=== PATIENT | female | born 1960 | race Caucasian/White ===

== ENCOUNTER 2020-07-01 13:47 | Outpatient (CLI) | payer OTHER, SELFPAY ==
--- NOTE | ~2020-07-01 | XR_ITS ---
EXAMINATION: XR chest 2V DATE: 07/01/2020 14:03 INDICATION: Shortness of breath and cough. TECHNIQUE: Frontal and lateral views of the chest were obtained. COMPARISON: Chest 2 views 10/28/2014 FINDINGS: There is mild scarring at the lung apices. No pleural effusion or pneumothorax. The heart s ize is normal. IMPRESSION: 1. Mild scarring at the lung apices. Reviewed, dictated and finalized at location A.
== END 2020-07-01 13:48 | disposition home or self-care (01) ==
PROVIDERS: PCP Physician Assistant; Visit Provider Allergy & Immunology
DX: R06.02 Shortness of breath (principal); R05 Cough
CPT/HCPCS: 71046

== ENCOUNTER 2020-10-02 12:45 | Emergency (ER) | payer OTHER, SELFPAY ==
--- NOTE | ~2020-10-02 | XR_ITS ---
EXAMINATION: XR elbow LT min 3V DATE: 10/02/2020 13:12 INDICATION: Swelling with drainage of the left elbow post fall one month prior TECHNIQUE: Anteroposterior, two oblique and lateral views of the left elbow were obtained. COMPARISON: None. FINDINGS: Alignment is normal. No fracture or joint effusion. Joint spaces are normal. There is prominent soft tissue swelling posterior to the olecranon with small amount of superficial gastric of the soft tissu es suggesting a skin laceration or open wound. No underlying cortical erosion or periosteal reaction to suggest osteomyelitis. IMPRESSION: 1. Soft tissue swelling with likely laceration or open skin wound posterior to the olecranon. 2. No left elbow joint effusion or osseous abnormality. Reviewed, dictated and finalized at location A.
[2020-10-02 12:55] VITALS: BP 133/80; PULSE 101; RESP 18; TEMP 37.1; O2SAT 99
--- NOTE | 2020-10-02 12:59 | ED.UPPEXIN ---
HPI - Extremity Injury (Upper) General Chief Complaint: Extremity Injury, Upper Stated Complaint: Fell in Shower injury to left Elbow Time Seen by Provider: 10/02/20 12:59 Source: patient and RN notes reviewed History of Present Illness HPI narrative: Patient is a 60-year-old female who presents the urgent care with complaints of left elbow swelling with an open wound. Patient states that she fell in the shower on September 06 and she was Steri-Strip been the small laceration over the left elbow since then. Patient states that for the last couple weeks she has noticed yellow drainage from the area and every time she bends her arm it would shoot across the room . Patient denies of any fevers and states that she has been keeping it clean with the use of Neosporin and a Band-Aid. Patient denies of any other injuries from the fall. No other acute complaints. No acute distress noted. Patient aware of the plan of care. Some parts of this dictation were generated by voice recognition software and may contain typographical and/or grammatical inaccuracies. Related Data Home Medications Medication Instructions Recorded Confirmed esomeprazole magnesium 20 mg 20 mg PO DAILY 03/18/20 10/02/20 capsule,delayed release Allergies Allergy/AdvReac Type Severity Reaction Status Date / Time Penicillins Allergy Unknown Skin Verified 10/02/20 12:58 irritation Review of Systems Review of Systems: Narrative: CONSTITUTIONAL: Denies fever, chills, or sweats. EYES: Denies visual changes, redness, or discharge. ENT: Denies rhinorrhea, congestion, sore throat, or otalgia. CARDIOVASCULAR: Denies chest pain, palpitations, or edema. RESPIRATORY: Denies cough or dyspnea. GASTROINTESTINAL: Denies abdominal pain, nausea, vomiting, or diarrhea. GENITOURINARY: Denies dysuria or hematuria. SKIN: Reports of an open wound to the left elbow MUSCULOSKELETAL: Reports of swelling to the left elbow NEUROLOGIC: Denies headache, numbness, or weakness. All other systems reviewed are negative, except as documented in HPI. [facility] Past Medical History Medical History VARSHA (generalized anxiety disorder) HTN (hypertension) Hypothyroidism determined by thyroid function test Surgical History Surgical History H/O: hysterectomy Hx of appendectomy Family History Family History Father Family history of heart disease in male family member before age 55 Family history of cardiovascular disease Acute myocardial infarction Family history of coronary artery disease Mother Family history of Parkinson's disease Family history of Alzheimer's disease Father Heart disease Mother Parkinson disease Other Family history of arthritis Social History Social History Smoking status: Former smoker (Quit 10 years ago) Second hand tobacco smoke exposure: No Alcohol intake: current Substance use: current Substance use type: marijuana Comments At the time of my signature, I reviewed and agree with the nursing past medical, surgical, social, and family history. There is no relevant family history pertinent to the patient complaint. Exam Narrative: Exam Narrative: GENERAL: This is a well-nourished, well-developed patient, in no apparent distress. HEAD: normocephalic, atraumatic. EYES: PERRL. Sclera clear/white. Vision is grossly intact. EARS: External ears normal NOSE: External nose normal with no obvious nasal discharge, nares without redness, no rhinorrhea. THROAT: Mucous membranes moist NECK: Neck supple CARDIOVASCULAR: Regular rate and rhythm without murmurs, gallops, or rubs. RESPIRATORY: Clear to auscultation. Breath sounds equal bilaterally. No wheezes, rales, or rhonchi. SKIN: 1 x 0.5 cm open wound with serosanguineous yell
== END 2020-10-02 13:46 | disposition home or self-care (01) ==
PROVIDERS: Emergency Provider Nurse Practitioner Family
DX: M70.22 Olecranon bursitis, left elbow (principal); Z87.891 Personal history of nicotine dependence; I10 Essential (primary) hypertension; E03.9 Hypothyroidism, unspecified
CPT/HCPCS: 73080; 99213; G0463

== ENCOUNTER 2020-12-24 10:50 | Emergency (ER) | payer OTHER, SELFPAY ==
--- NOTE | ~2020-12-24 | XR_ITS ---
EXAMINATION: XR foot LT min 3V DATE: 12/24/2020 11:20 INDICATION: Pain and swelling in the medial aspect of the left foot TECHNIQUE: Dorsoplantar, lateral, and 2 oblique views of the left foot were obtained. COMPARISON: None. FINDINGS: There is mild osteoarthritis of multiple interphalangeal joints as well as at the first met atarsophalangeal joint. There is mild cortical irregularity at the medial aspect of the proximal base of the first metatarsal. Soft tissue swelling is seen in the medial aspect of the foot adjacent to t he base of the first metatarsal. IMPRESSION: 1. Subtle cortical irregularity and adjacent soft tissue swelling of the base of the first metatarsal which could reflect nondisplaced fracture or less likely gout. Reviewed, dictated and finalized at location B. IMPRESSION: 1. Subtle cortical irregularity and adjacent soft tissue swelling of the base o f the first metatarsal which could reflect nondisplaced fracture or less likely gout.
[2020-12-24 10:57] VITALS: BP 157/84; PULSE 95; RESP 16; TEMP 36.4; O2SAT 100
--- NOTE | 2020-12-24 11:27 | ED.LOWEXIN ---
HPI - Extremity Injury (Lower) General Chief Complaint: Extremity Injury, Lower <Aimee Salazar - Last Filed: 12/25/20 07:55> Stated Complaint: Swollen and pain in left Foot <Aimee Salazar - Last Filed: 12/25/20 07:55> Time Seen by Provider: 12/24/20 11:27 <Aimee Salazar - Last Filed: 12/25/20 07:55> Source: patient and RN notes reviewed <Aimee Salazar - Last Filed: 12/25/20 07:55> patient <Nayeli Simpson CNP - Last Filed: 12/24/20 17:59> Mode of arrival: ambulatory <Aimee Salazar - Last Filed: 12/25/20 07:55> ambulatory <Nayeli Simpson CNP - Last Filed: 12/24/20 17:59> Limitations: no limitations <Aimee Salazar - Last Filed: 12/25/20 07:55> no limitations <Nayeli Simpson CNP - Last Filed: 12/24/20 17:59> History of Present Illness HPI Narrative: 60-year-old female presents to the [facility] with complaints of left foot pain <Aimee Salazar - Last Filed: 12/25/20 07:55> Rosa Ndiaye is a 60 yo female with a PMH of high blood pressure and hypothyroid comes to [facility] after a fall couple days ago and pain in her left foot at the base of her great toe. She been taking gout medication because she is got swelling around the toe and has had gout in the past but has it has not improved with the medication (she does not know the name of the medication she has been taking) <Nayeli Simpson CNP - Last Filed: 12/24/20 17:59> Related Data Home Medications: Home Medications Medication Instructions Recorded Confirmed cetirizine 5 mg-pseudoephedrine ER 1 tablet PO Q12H 10/20/20 12/24/20 120 mg tablet,extended release,12hr atorvastatin 10 mg PO DAILY 12/24/20 12/24/20 sokuboqweuv-ryakxxsnl-fsnprcli 1 inh INHALATION DAILY 12/24/20 12/24/20 [Trelegy Ellipta] venlafaxine 150 mg PO DAILY 12/24/20 12/24/20 <Aimee A. Topper - Last Filed: 12/25/20 07:55> Allergies/Adverse Reactions: Allergies Allergy/AdvReac Type Severity Reaction Status Date / Time Penicillins Allergy Unknown Skin Verified 12/24/20 11:10 irritation <Aimee A. Topper - Last Filed: 12/25/20 07:55> Review of Systems Review of Systems: CONSTITUTIONAL: Denies fever, chills, sweats. EYES: Denies visual changes, redness, discharge. ENT: Denies rhinorrhea, congestion, sore throat, otalgia. CARDIOVASCULAR: Denies chest pain, palpitations, edema. RESPIRATORY: Denies dyspnea, wheezing, cough GASTROINTESTINAL: Denies abdominal pain, nausea, vomiting, diarrhea. GENITOURINARY: Denies dysuria, hematuria, abnormal discharge SKIN: Denies rash or itching. NEUROLOGIC: Denies numbness, or focal weakness. PSYCHIATRIC: Denies anxiety or depression. Left great toe pain with swelling across the dorsum of midfoot <Nayeli Simpson, [facility] - Last Filed: 12/24/20 17:59> All systems reviewed & are unremarkable except as noted in HPI and below <Aimee A. Topper - Last Filed: 12/25/20 07:55> Constitutional: Constitutional: Reports no additional constitutional complaints <Amiee A. Topper - Last Filed: 12/25/20 07:55> Eyes: Eyes: Reports no additional eye complaints <Aimee A. Topper - Last Filed: 12/25/20 07:55> ENT: Reports system reviewed and no additional complaints, except as documented <Aimee A. Topper - Last Filed: 12/25/20 07:55> Cardiovascular: Cardiovascular: Reports no additional cardiovascular complaints <Aimee A. Topper - Last Filed: 12/25/20 07:55> Respiratory: Respiratory: Reports no additional respiratory complaints <Aimee A. Topper - Last Filed: 12/25/20 07:55> Musculoskeletal: Musculoskeletal: Reports as per HPI <Aimee A. Topper - Last Filed: 12/25/20 07:55> Comments: Left foot pain <Aimee A. Topper - Last Filed: 12/25/20 07:55> [facility] Past Medical History Medical History: Medical History Allergies VARSHA (generalized anxiety disorder) HTN (hypertension) Hypothyroidism determined by thyroid function test <Aimee Rangel To
== END 2020-12-24 12:11 | disposition home or self-care (01) ==
PROVIDERS: Emergency Provider Nurse Practitioner
DX: S92.302A Fracture of unspecified metatarsal bone(s), left foot, initial encounter for closed fracture (principal); W19.XXXA Unspecified fall, initial encounter; Z87.891 Personal history of nicotine dependence; I10 Essential (primary) hypertension; E03.9 Hypothyroidism, unspecified; F41.1 Generalized anxiety disorder
CPT/HCPCS: 73630; 99213; G0463

== ENCOUNTER 2021-08-16 12:06 | Outpatient (CLI) | payer OTHER, SELFPAY ==
[2021-08-16 19:26] LABS: Alanine Aminotransferase 32 U/L (4-35); Albumin Level 5.1 g/dL (3.5-5.1); Alkaline Phosphatase 105 U/L (38-126); Anion Gap 14 mmol/L (8-16); Aspartate Amino Transferase 63 U/L (14-36); Bilirubin,Total 0.4 mg/dL (0.2-1.3); Blood Urea Nitrogen 5 mg/dL (7-17); Calcium 9.9 mg/dL (8.4-10.2); Carbon Dioxide 21 mmol/L (22-30); Chloride 94 mmol/L (98-107); Estimated Glomerular Filt Rate > 60; Glucose 86 mg/dL (65-110); Potassium 4.7 mmol/L (3.4-5.0); Sodium 129 mmol/L (137-145); Uric Acid 4.6 mg/dL (2.5-7.5)
== END 2021-08-16 12:07 | disposition home or self-care (01) ==
LOC: ANHBWCLAB 12:09
PROVIDERS: PCP Family Medicine; Visit Provider Family Medicine
DX: E87.1 Hypo-osmolality and hyponatremia (principal); R74.8 Abnormal levels of other serum enzymes; E03.9 Hypothyroidism, unspecified; M10.9 Gout, unspecified
CPT/HCPCS: 36415; 80053; 84443; 84550

== ENCOUNTER 2021-09-14 12:40 | Emergency (ER) | payer OTHER, SELFPAY ==
--- NOTE | ~2021-09-14 | XR_ITS ---
XR knee LT min 4V 09/14/2021 13:18 Indication: Left knee pain Procedure: 5 views left knee Comparison: No prior studies for comparison. Findings: There is a minimally depressed lateral tibial plateau fracture. There is a small joint effu anisha. No significant joint space narrowing. Patella intact. Impression: 1: Minimally depressed lateral tibial plateau fracture, age indeterminate. Reviewed, dictated and finalized at location A. Impression: 1: Minimally depressed lateral tibial plateau fracture, age indeterminate.
--- NOTE | ~2021-09-14 | XR_ITS ---
EXAMINATION: XR wrist LT min 3V DATE: 09/14/2021 13:18 INDICATION: Left wrist pain. TECHNIQUE: 4 views of left wrist were obtained. COMPARISON: None. FINDINGS: There is a fracture of distal radius with involvement of the dorsal cortex of the metaphysi s. The distal fracture fragment demonstrates near-anatomic alignment. No definite involvement of the distal articular surface. There is 3 degrees palmar tilt of the distal articular surface. Ulnar stylo id is intact. There is mild osteoarthritis of first carpometacarpal joint. IMPRESSION: 1. Nondisplaced fracture of distal radial metaphysis. Reviewed, dictated and finalized at location A.
[2021-09-14 12:48] VITALS: BP 180/97; PULSE 113; RESP 16; TEMP 36.7; O2SAT 99
[2021-09-14 13:07] VITALS: BP 180/97; PULSE 113; RESP 16; TEMP 36.7; O2SAT 99
--- NOTE | 2021-09-14 13:45 | ED.LOWEXIN ---
HPI - Extremity Injury (Lower) General Chief Complaint: Extremity Injury, Lower Stated Complaint: Fall Injury/Left Wrist/Left Knee Time Seen by Provider: 09/14/21 13:36 Source: patient, RN notes reviewed and old records reviewed Mode of arrival: ambulatory Limitations: no limitations History of Present Illness HPI Narrative: 61-year-old female who presents to [facility] care via wheelchair with complaints of falling backward off of 3 steps onto concrete last p.m. Patient states she tried to break her fall with her left hand and has pain to the wrist area. She also reports that she has pain to her left knee from fall lateral aspect. Patient states that she has been having problems with her knee giving out for the past couple month, Patient states that she fell in June getting on [employer] in [place] and she fell again about 3 weeks ago when she was with her daughter. complaint: knee injury (Left) and other (Left wrist) Injury: Left: knee Severity scale (1-10): 4 Related Data Home Medications Medication Instructions Recorded Confirmed fluticasone fur. 200 mcg-umeclid 1 inh inhalation DAILY 12/24/20 09/14/21 62.5 mcg-vilant 25 mcg inhalat.powder (Trelegy Ellipta) albuterol sulfate 90 mcg/actuation 2 inh inhalation DIRECTED 09/14/21 09/14/21 aerosol inhaler Allergies Allergy/AdvReac Type Severity Reaction Status Date / Time Penicillins Allergy Unknown Skin Verified 09/14/21 12:45 irritation Review of Systems Review of Systems: CONSTITUTIONAL: Denies fever, chills, or sweats. EYES: Denies visual changes, redness, or discharge. ENT: Denies rhinorrhea, congestion, sore throat, or otalgia. CARDIOVASCULAR: Denies chest pain, palpitations, or edema. RESPIRATORY: Denies cough or dyspnea. GASTROINTESTINAL: Denies abdominal pain, nausea, vomiting, or diarrhea. GENITOURINARY: Denies dysuria or hematuria. SKIN: Denies rash or itching. MUSCULOSKELETAL: Denies back pain, positive for left knee joint pain and left wrist or myalgia. NEUROLOGIC: Denies headache, numbness, or weakness. PSYCHIATRIC: positive for history of anxiety or depression. [facility] Past Medical History Medical History (Updated 09/15/21 @ 20:07 by Caitie Colunga NP) Allergies COPD (chronic obstructive pulmonary disease) VARSHA (generalized anxiety disorder) HTN (hypertension) Hypothyroidism determined by thyroid function test Surgical History Surgical History H/O: hysterectomy Hx of appendectomy Family History Family History Father Family history of heart disease in male family member before age 55 Family history of cardiovascular disease Acute myocardial infarction Family history of coronary artery disease Mother Family history of Parkinson's disease Family history of Alzheimer's disease Father Heart disease Mother Parkinson disease Other Family history of arthritis Social History Social History Smoking status: Former smoker Second hand tobacco smoke exposure: No Alcohol intake: current Substance use: current Substance use type: marijuana Comments At time of signature, agree with nursing past medical, surgical, social and family history. There is no relevant family history pertinent to the presenting complaint Exam Narrative: GENERAL: Well-appearing, well-nourished, and in no acute distress. HEAD: Normocephalic, atraumatic. EYES: PERRLA and EOMI. ENT: Nares clear, no rhinorrhea or epistaxis. Mucous membranes moist. NECK: Supple. No lymphadenopathy CHEST: Clear decreased to auscultation. No respiratory distress. SaO2 99% on room air HEART: Regular rate and rhythm. No murmur heard. Normal peripheral pulses. ABDOMEN: Soft, nontender, nondistended, normal active bowel sounds. EXTREMITIES: Normal range of motion. No edema.Exception noted to pain to her le
== END 2021-09-14 14:35 | disposition home or self-care (01) ==
PROVIDERS: Emergency Provider Registered Nurse; PCP Family Medicine
DX: S52.502A Unspecified fracture of the lower end of left radius, initial encounter for closed fracture (principal); S82.142A Displaced bicondylar fracture of left tibia, initial encounter for closed fracture; W10.9XXA Fall (on) (from) unspecified stairs and steps, initial encounter; J44.9 Chronic obstructive pulmonary disease, unspecified; I10 Essential (primary) hypertension; E03.9 Hypothyroidism, unspecified; Z87.891 Personal history of nicotine dependence
CPT/HCPCS: 29125; 73110; 73564; 99214; A4565; G0463; L1830

== ENCOUNTER 2022-10-27 11:45 | Outpatient (CLI) | payer BC, SELFPAY ==
[2022-10-27 19:27] LABS: Hematocrit 39.3 % (37.0-47.0); Mean Corpuscular HGB Conc 33.1 g/dl (32-36); Mean Corpuscular Hemoglobin 30.9 pg (26-34); Mean Corpuscular Volume 93.3 fl (80-100); Mean Platelet Volume 8.9 fl (7.4-10.4); Platelet Count Result 378 k/mm3 (150-375); Red Blood Count 4.21 M/mm3 (4.2-5.4); Red Cell Distribution Width 14.1 % (11.5-14.5); White Blood Count 7.7 K/mm3 (4.5-10.0)
[2022-10-27 19:32] LABS: Alanine Aminotransferase 33 U/L (6-35); Albumin Level 4.7 g/dL (3.5-5.1); Alkaline Phosphatase 102 U/L (38-126); Anion Gap 9 mmol/L (8-16); Aspartate Amino Transferase 65 U/L (14-36); Bilirubin,Total 0.6 mg/dL (0.2-1.3); Blood Urea Nitrogen 9 mg/dL (7-17); Calcium 9.8 mg/dL (8.4-10.2); Carbon Dioxide 26 mmol/L (22-30); Chloride 96 mmol/L (98-107); Cholesterol 203 mg/dL (0-200); Estimated Glomerular Filt Rate > 60; Glucose 100 mg/dL (65-110); HDL Direct 92 mg/dL; Potassium 4.4 mmol/L (3.4-5.0); Sodium 131 mmol/L (137-145); Triglycerides 83 mg/dL (<150)
[2022-10-27 19:43] LABS: LDL Cholesterol Direct 87 mg/dL
[2022-10-27 20:27] LABS: Hemoglobin A1C 5.1 % (<5.7)
== END 2022-10-27 11:46 | disposition home or self-care (01) ==
PROVIDERS: PCP Family Medicine; Visit Provider Nurse Practitioner Adult Health
DX: E03.9 Hypothyroidism, unspecified (principal); F10.20 Alcohol dependence, uncomplicated; I10 Essential (primary) hypertension; R42 Dizziness and giddiness
CPT/HCPCS: 36415; 80048; 80061; 80076; 83036; 84443; 85027

== ENCOUNTER 2022-12-27 11:21 | Outpatient (CLI) | payer BC, SELFPAY ==
[2022-12-27 19:44] LABS: Add Urine Microscopic? YES; Appearance Urine Cloudy (Clear); Bacteria Urine 4+ /hpf; Bilirubin Urine Negative (Negative); Blood Urine Negative (Negative); Color Urine Yellow (Yellow); Glucose Urine UA Negative (Negative); Ketones Urine Negative (Negative); Leukocyte Esterase Ur 3+ LEU/UL (NEGATIVE); Need Manual Microscopic Reviewed; Nitrate Urine Positive (Negative); Protein Urine Negative (Negative); RBC Urine 0-2 /hpf (0-2); Specific Grav Ur 1.005 (1.001-1.035); Squamous Epithelial Cell Urine None seen /hpf (Few); Urobilinogen Urine 0.2 mg/dL (<2.0); WBC Urine 21-50 /hpf (0-3)
== END 2022-12-27 11:22 | disposition home or self-care (01) ==
LOC: ANHBWCLAB 11:24
PROVIDERS: PCP Nurse Practitioner Adult Health; Visit Provider Nurse Practitioner Adult Health
DX: R39.9 Unspecified symptoms and signs involving the genitourinary system (principal)
CPT/HCPCS: 81001

== ENCOUNTER → 2023-01-03 12:48 | Outpatient (CLI) | payer BC, SELFPAY ==
--- NOTE | ~2023-01-03 | MR_ITS ---
MRI of the brain Clinical History: Alcoholic encephalopathy Technique: Axial and sagittal T1-weighted images were acquired. These were followed by axial T2-weigh jen, diffusion weighted, gradient, and FLAIR images. Findings: There is no acute infarct, intracranial hemorrhage, or mass lesion. There are mild chronic white matter changes in the periventricular white matter bilaterally. Ventricles and subarachnoid spaces are unremarkable. Orbits are unremarkable. Paranasal sinuses and m astoid air cells are clear. Major intracranial flow voids are intact. Sagittal midline structures are intact. IMPRESSION: No acute infarct, intracranial hemorrhage, or mass lesion. Mild chronic microvascular ischemic changes. Reviewed, dictated and finalized at location .
== END ==
PROVIDERS: PCP Nurse Practitioner Adult Health; Visit Provider Nurse Practitioner Adult Health
DX: R22.0 Localized swelling, mass and lump, head (principal)
CPT/HCPCS: 70551

== ENCOUNTER 2023-01-16 13:37 | Outpatient (CLI) | payer BC, SELFPAY ==
[2023-01-16 19:12] LABS: Appearance Urine Clear (Clear); Bacteria Urine None Seen /hpf; Bilirubin Urine Negative (Negative); Blood Urine Negative (Negative); Color Urine Yellow (Yellow); Glucose Urine UA Negative (Negative); Ketones Urine Negative (Negative); Leukocyte Esterase Ur 1+ LEU/UL (NEGATIVE); Need Manual Microscopic Reviewed; Nitrate Urine Negative (Negative); Non Pathogenic Casts 0-2; Protein Urine Negative (Negative); RBC Urine 0-2 /hpf (0-2); Specific Grav Ur 1.005 (1.001-1.035); Squamous Epithelial Cell Urine None seen /hpf (Few); Urobilinogen Urine 0.2 mg/dL (<2.0); WBC Urine 0-5 /hpf (0-3)
[2023-01-16 19:18] LABS: Add Urine Microscopic? YES
== END 2023-01-16 13:38 | disposition home or self-care (01) ==
LOC: ANHBWCLAB 13:39
PROVIDERS: PCP Nurse Practitioner Adult Health; Visit Provider Nurse Practitioner Adult Health
DX: R39.9 Unspecified symptoms and signs involving the genitourinary system (principal)
CPT/HCPCS: 81001

== ENCOUNTER 2023-06-07 12:46 | Outpatient (CLI) | payer BC, SELFPAY ==
--- NOTE | ~2023-06-07 | XR_ITS ---
EXAMINATION: XR knee LT 3V DATE: 06/07/2023 12:58 INDICATION: Left knee pain TECHNIQUE: AP, lateral and sunrise views of the left knee were obtained COMPARISON: FINDINGS: Alignment is normal. No acute fracture. There is there is unchanged curvilinear sclerosis underlying the lateral tibial plateau where there was a prior now healed likely impaction fracture. The stable appearance of the sclerosis when compared with the time of the acute injury in the current study over year later suggests the presence of a benign nonaggressive lytic lesion with sclerotic margins unrel ated to the fracture with differential including pulmonary infarct, enchondroma or a geode. Joint spa betty appear relatively preserved with no erosions or osteophytosis. No joint effusion. Soft tissues ar e unremarkable. IMPRESSION: 1. Stable appearance of a likely benign nonaggressive appearing lytic lesion with sclerotic margins u nderlying a healed impaction fracture at the lateral tibial plateau. Differential for the lytic lesio n would include bone infarct, enchondroma, geode or less likely artifactual appearance of a lytic les ion related to the fracture. Reviewed, dictated and finalized at location A. ER OPERATOR IMPRESSION: 1. Stable appearance of a likely benign nonaggressive appearing lytic lesion wi th sclerotic margins underlying a healed impaction fracture at the lateral tibi al plateau. Differential for the lytic lesion would include bone infarct, encho ndroma, geode or less likely artifactual appearance of a lytic lesion related t o the fracture.
== END 2023-06-07 12:47 | disposition home or self-care (01) ==
LOC: ANHBWCIMG 12:47
PROVIDERS: PCP Family Medicine; Visit Provider Family Medicine
DX: M25.562 Pain in left knee (principal); E03.9 Hypothyroidism, unspecified; E87.1 Hypo-osmolality and hyponatremia
CPT/HCPCS: 36415; 73562; 84443

== ENCOUNTER 2023-07-03 10:33 | Outpatient (CLI) | payer BC, SELFPAY ==
--- NOTE | ~2023-07-03 | US_ITS ---
EXAMINATION: US soft tissue head and neck DATE: 07/03/2023 11:22 INDICATION: One month of neck swelling. TECHNIQUE: Multiple grayscale and Doppler ultrasound images of the region of concern at the bilateral base of the neck were obtained. COMPARISON: None FINDINGS: Normal appearance to the subcutaneous fat at the region of concern. No pathologically enlarged lympha denopathy or other abnormal masses or fluid collections identified. IMPRESSION: 1. No abnormal masses, fluid collections or pathologically enlarged lymphadenopathy at the regions of soft tissue swelling at the left and right base of the neck. Reviewed, dictated and finalized at location A. IMPRESSION: 1. No abnormal masses, fluid collections or pathologically enlarged lymphadenop athy at the regions of soft tissue swelling at the left and right base of the n nidhi.
== END 2023-07-03 10:34 | disposition home or self-care (01) ==
PROVIDERS: PCP Nurse Practitioner Adult Health; Visit Provider Nurse Practitioner Adult Health
DX: M79.89 Other specified soft tissue disorders (principal)
CPT/HCPCS: 76536

== ENCOUNTER 2023-09-04 11:48 | Outpatient (CLI) | payer BC, SELFPAY ==
[2023-09-04 19:53] LABS: Basophils Absolute Auto 0.1 K/mm3 (0.0-0.1); Basophils Percent Auto 0.7 % (0.2-1.2); Eosinophils Absolute Auto 0.3 K/mm3 (0-0.3); Eosinophils Percent Auto 3.5 % (0-4.4); Hematocrit 38.6 % (37.0-47.0); Hemoglobin 12.9 g/dL (12.0-15.0); Immature Granulocyte Absolute 0.11 K/mm3 (0.00-0.031); Immature Granulocyte Percent A 1.5 % (0-0.5); Lymphocytes Absolute Auto 1.15 K/mm3 (0.9-3.2); Lymphocytes Percent Auto 15.6 % (18.3-44.2); Mean Corpuscular HGB Conc 33.4 g/dl (32-36); Mean Corpuscular Hemoglobin 30.6 pg (26-34); Mean Corpuscular Volume 91.7 fl (80-100); Mean Platelet Volume 9.1 fl (7.4-10.4); Monocytes Absolute Auto 0.7 K/mm3 (0.1-0.6); Monocytes Percent Auto 9.9 % (2.6-8.5); Neutrophils Absolute Auto 5.1 K/mm3 (1.3-6.7); Neutrophils Percent Auto 68.8 % (45.5-73.1); Platelet Count Result 323 k/mm3 (150-375); Red Blood Count 4.21 M/mm3 (4.2-5.4); Red Cell Distribution Width 14.4 % (11.5-14.5); White Blood Count 7.4 K/mm3 (4.5-10.0)
[2023-09-04 20:09] LABS: Alanine Aminotransferase 41 U/L (6-35); Albumin Level 4.8 g/dL (3.5-5.1); Alkaline Phosphatase 91 U/L (38-126); Anion Gap 10 mmol/L (4-12); Aspartate Amino Transferase 84 U/L (14-36); Bilirubin,Total 0.7 mg/dL (0.2-1.3); Blood Urea Nitrogen 6 mg/dL (7-17); Calcium 9.9 mg/dL (8.4-10.2); Carbon Dioxide 23 mmol/L (22-30); Chloride 96 mmol/L (98-107); Cholesterol 212 mg/dL (0-200); Estimated Glomerular Filt Rate > 60; Glucose 109 mg/dL (65-110); HDL Direct 110 mg/dL; Magnesium 2.1 mg/dL (1.6-2.3); Potassium 4.8 mmol/L (3.4-5.0); Sodium 129 mmol/L (137-145); Triglycerides 91 mg/dL (<150)
[2023-09-04 20:20] LABS: LDL Cholesterol Direct 90 mg/dL
== END 2023-09-04 11:49 | disposition home or self-care (01) ==
LOC: ANHBWCLAB 11:50
PROVIDERS: PCP Nurse Practitioner Adult Health; Visit Provider Nurse Practitioner Adult Health
DX: E03.9 Hypothyroidism, unspecified (principal); I10 Essential (primary) hypertension
CPT/HCPCS: 36415; 80053; 80061; 83735; 84443; 85025

== ENCOUNTER 2023-09-20 13:01 | Outpatient (CLI) | payer BC, SELFPAY ==
[2023-09-20 19:38] LABS: Appearance Urine Cloudy (Clear); Bilirubin Urine Negative (Negative); Blood Urine Trace (Negative); Color Urine Yellow (Yellow); Glucose Urine UA Negative (Negative); Ketones Urine Negative (Negative); Leukocyte Esterase Ur 3+ LEU/UL (Negative); Nitrate Urine Negative (Negative); Non Pathogenic Casts 0-2; Protein Urine Negative (Negative); RBC Urine 0-2 /hpf (0-2); Specific Grav Ur 1.008 (1.001-1.035); Squamous Epithelial Cell Urine Occasional /hpf (Few); WBC Urine >100 /hpf (0-3)
[2023-09-20 19:41] LABS: Bacteria Urine 2+ /hpf
[2023-09-20 19:55] LABS: Add Urine Microscopic? YES
== END 2023-09-20 13:02 | disposition home or self-care (01) ==
LOC: ANHBWCLAB 13:02
PROVIDERS: PCP Nurse Practitioner Adult Health; Visit Provider Nurse Practitioner Adult Health
DX: R39.9 Unspecified symptoms and signs involving the genitourinary system (principal)
CPT/HCPCS: 81001

== ENCOUNTER 2024-01-04 12:52 | Outpatient (CLI) | payer BC, SELFPAY ==
[2024-01-04 19:11] LABS: Add Urine Microscopic? YES; Appearance Urine Clear (Clear); Bacteria Urine 3+ /hpf; Bilirubin Urine Negative (Negative); Blood Urine Negative (Negative); Color Urine Yellow (Yellow); Glucose Urine UA Negative (Negative); Ketones Urine Negative (Negative); Leukocyte Esterase Ur 3+ LEU/UL (Negative); Nitrate Urine Negative (Negative); Non Pathogenic Casts 0-2; Protein Urine Negative (Negative); RBC Urine 0-2 /hpf (0-2); Specific Grav Ur 1.003 (1.001-1.035); Squamous Epithelial Cell Urine None Seen /hpf (Few); Urobilinogen Urine 0.2 mg/dL (<2.0); WBC Urine 21-50 /hpf (0-3); pH Urine 6.5 (5.0-9.0)
== END 2024-01-04 12:53 | disposition home or self-care (01) ==
PROVIDERS: PCP Nurse Practitioner Adult Health; Visit Provider Nurse Practitioner Adult Health
DX: R39.9 Unspecified symptoms and signs involving the genitourinary system (principal)
CPT/HCPCS: 81001; 87077; 87086; 87088

== ENCOUNTER 2024-03-06 12:14 | Outpatient (CLI) | payer BC, SELFPAY ==
[2024-03-06 18:28] LABS: Basophils Absolute Auto 0.1 K/mm3 (0.0-0.1); Basophils Percent Auto 0.8 % (0.2-1.2); Eosinophils Absolute Auto 0.3 K/mm3 (0-0.3); Eosinophils Percent Auto 2.7 % (0-4.4); Hematocrit 40.6 % (37.0-47.0); Immature Granulocyte Absolute 0.12 K/mm3 (0.00-0.031); Lymphocytes Absolute Auto 1.78 K/mm3 (0.9-3.2); Lymphocytes Percent Auto 15.1 % (18.3-44.2); Mean Corpuscular HGB Conc 34.5 g/dl (32-36); Mean Corpuscular Hemoglobin 31.6 pg (26-34); Mean Corpuscular Volume 91.6 fl (80-100); Mean Platelet Volume 8.9 fl (7.4-10.4); Monocytes Absolute Auto 1.1 K/mm3 (0.1-0.6); Monocytes Percent Auto 9.5 % (2.6-8.5); Neutrophils Absolute Auto 8.3 K/mm3 (1.3-6.7); Neutrophils Percent Auto 70.9 % (45.5-73.1); Platelet Count Result 396 k/mm3 (150-375); Red Blood Count 4.43 M/mm3 (4.2-5.4); Red Cell Distribution Width 14.3 % (11.5-14.5); White Blood Count 11.8 K/mm3 (4.5-10.0)
[2024-03-06 18:41] LABS: Add Urine Microscopic? YES; Alanine Aminotransferase 34 U/L (6-35); Albumin Level 4.9 g/dL (3.5-5.1); Alkaline Phosphatase 110 U/L (38-126); Anion Gap 12 mmol/L (4-12); Appearance Urine Cloudy (Clear); Aspartate Amino Transferase 96 U/L (14-36); Bacteria Urine 2+ /hpf; Bilirubin Urine Negative (Negative); Bilirubin,Total 0.8 mg/dL (0.2-1.3); Blood Urea Nitrogen 6 mg/dL (7-17); Blood Urine Negative (Negative); Calcium 9.9 mg/dL (8.4-10.2); Carbon Dioxide 24 mmol/L (22-30); Chloride 96 mmol/L (98-107); Cholesterol 236 mg/dL (0-200); Color Urine Yellow (Yellow); Estimated Glomerular Filt Rate > 60; Glucose 96 mg/dL (65-110); Glucose Urine UA Negative (Negative); HDL Direct 105 mg/dL; Ketones Urine Negative (Negative); Leukocyte Esterase Ur 3+ LEU/UL (Negative); Need Manual Microscopic Reviewed; Nitrate Urine Negative (Negative); Potassium 4.3 mmol/L (3.4-5.0); Protein Urine Negative (Negative); RBC Urine 0-2 /hpf (0-2); Sodium 132 mmol/L (137-145); Specific Grav Ur 1.011 (1.001-1.035); Squamous Epithelial Cell Urine Occasional /hpf (Few); Triglycerides 107 mg/dL (<150); Urobilinogen Urine 0.2 mg/dL (<2.0); WBC Urine >100 /hpf (0-3)
[2024-03-06 18:51] LABS: LDL Cholesterol Direct 97 mg/dL
== END 2024-03-06 12:15 | disposition home or self-care (01) ==
LOC: ANHBWCLAB 12:15
PROVIDERS: PCP Nurse Practitioner Adult Health; Visit Provider Nurse Practitioner Adult Health
DX: R39.9 Unspecified symptoms and signs involving the genitourinary system (principal); I10 Essential (primary) hypertension
CPT/HCPCS: 36415; 80053; 80061; 81001; 84443; 85025; 87086

== ENCOUNTER 2024-03-13 12:33 | Outpatient (CLI) | payer BC, SELFPAY ==
--- NOTE | ~2024-03-13 | CT_ITS ---
EXAMINATION: CT lung screening DATE: 03/13/2024 13:00 INDICATION: Z87.891 - Personal history of nicotine dependence TECHNIQUE: Computed tomography (CT) of the chest was performed without intravenous contrast. Addition al 3D reconstructions utilizing coronal maximum intensity projection (MIP) were performed. Automated exposure control and iterative reconstruction technique were employed. The dose-length product was 10 4.29 mGy-cm. COMPARISON: None FINDINGS: Mild biapical pleural-parenchymal scarring. Small calcified nodule consistent with old granulomatous disease at the at the junction of the left upper lobe and lingula. No other noncalcified pulmonary no dules, pneumonia, pulmonary edema or pleural effusion. Heart size is normal. Small amount of atherosc lerotic coronary artery calcific location. Thoracic aorta is normal in caliber. No pathologically enl arged thoracic lymphadenopathy. Small sliding-type hiatal hernia. Diffuse hepatic steatosis with 3 x 2 cm fluid attenuation lesion in segment IVb of the liver along the joe hepatis which could represe nt a hepatic cyst, hemangioma or more focal steatosis. IMPRESSION: 1. Lung-RADS category 1: Negative. Continue annual screening with noncontrast low-dose chest CT in 12 months. Reviewed, dictated and finalized at location A. ING PLANT OPERATOR IMPRESSION: 1. Lung-RADS category 1: Negative. Continue annual screening with noncontrast l ow-dose chest CT in 12 months.
== END 2024-03-13 12:34 | disposition home or self-care (01) ==
LOC: MICIMG 12:34
PROVIDERS: PCP Nurse Practitioner Adult Health; Visit Provider Nurse Practitioner Adult Health
DX: Z12.2 Encounter for screening for malignant neoplasm of respiratory organs (principal); Z87.891 Personal history of nicotine dependence
CPT/HCPCS: 71271

== ENCOUNTER 2024-09-03 11:56 | Outpatient (CLI) | payer BC, SELFPAY ==
--- OUTSIDE RECORDS SUMMARY | 2024-09-03 11:59 | XMS_ITS | Clinical Summary ---
Author Organization [facility] Address [address] [place] [address] Care Team Providers Care Crossbar Frame Wirer Name Role Phone Marybeth Burkett MD Primary Care Provider [phone] Source Comments [facility],non-owned Affiliates and Associated Physician Practices is amultiple site organization consisting of ambulatory clinics and hospital sitesin [place], [place], [place] and [place]. This disclosure is being madepursuant to the Care Everywhere program and may not contain all information available regarding this patient. Last updated 18.[facility] Allergies Active Allergy Reactions Criticality Noted Date Comments Penicillins Skin Reactions Medium 11/18/2014 Active Problems Problem Noted Date Diagnosed Date Fatty (change of) liver, not elsewhere classifie d 11/18/2014 Overview (07/17/2017): Seen on 06/2013 Social History Tobacco Use Types Packs/Day Years Used Date Smoking Tobacco: Former Cigarettes Q uit: 04/17/2009 Smokeless Tobacco: Never Alcohol Use Standard Drinks/Week Comments No 0 (1 standard drink = 0.6 oz pur e alcohol) Comments Unknown Sex and Gender Information Value Date Recorded Sex Assigned at Not on file 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 Gender Identity Not on file Sexual Orientation Not on file Last Filed Vital Signs Vital Sign Reading Time Taken Comments Blood Pressure 138/81 01/12/2015 12:33 PM CDT Pulse 75 01/12/2015 12:33 PM CDT Temperature 36.4 C (97.5 F) 01/12/2015 12:33 PM CDT Respiratory Rate 18 01/12/2015 12:33 PM CDT Oxygen Saturation - - Inhaled Oxygen Concentration - - Weight 64.2 kg (141 lb 9.6 oz) 01/12/2015 12:33 PM CDT Height 170.2 cm (5' 7 ) 01/12/2015 12:33 PM CDT Body Mass Index 22.18 01/12/2015 12:33 PM CDT Plan of Treatment Health Maintenance Due Date Last Done Comments COLOGUARD (AGES 45-75) - COL ON CA SCREENING 1961 COLON MONITORING 1961 COLONOSCOPY - COLON CA SCREENING 1961 CT COLONOGRAPHY - COLON CA SCREENING 1961 Colorectal Cancer Screening 1961 FIT - COLON CA SCREENING 1961 FLEX SIG - COLON CA SCREENING 1961 LIPID TESTING 1961 MAMMOGRAM 1961 HIV SCREENING 1976 DTAP/TDAP/TD VACCINES (1 - Tdap) 1980 PNEUMOCOCCAL VACCINE 50+ (1 of 1 - PCV) 2011 ZOSTER VACCINE (1 of 2) 2011 COVID-19 VACCINE (1 - 2023-2 5 season) 2023 DEPRESSION SCREENING 04/17/2024 INFLUENZA VACCINE (Season Ended) 2024 Respiratory Syncytial Virus (RSV) Vaccine Pt: or over 60 yrs (1 - 1-dose 75+ series) 2036 HEPATITIS C SCREENING Completed 11/18/2014 HEPATITIS B VACCINE Aged Out No longe r eligible based on patient's age to complete this topic HIB VACCINE Aged Out No longer eligi ble based on patient's age to complete this topic HPV VACCINE Aged Out No longer eligi ble based on patient's age to complete this topic MENINGOCOCCAL (Group B) VACC INE SHARED DECISION-MAKING Aged Out No longer eligibl e based on patient's age to complete this topic MENINGOCOCCAL GROUPS A/C/Y/W VACCINE Aged Out No longer eligible b ased on patient's age to complete this topic Procedures Procedure Name Priority Date/Time Associated Diagnosis Comments HEPATITIS C ANTIBODY Routine 11/18/2014 12:09 PM CDT from Last 3 Months or Most Recently Relevant to Health Maintenance Results * HEPATITIS C ANTIBODY (11/18/2014 12:09 PM CDT) Hepatitis C Antibody Non-react jovani Non-reac tive [facility] Comment: Hepatitis C Antibody screen indicates no serologic evidence of past or current infection with Hepatitis C Virus. Patients with unexplained liver disease who are immunocompromised or suspected of having acute Hepatitis C infection may benefit from Nucleic Acid Test ([facility]) for Hepatitis C Viral RNA to confirm Hepatitis C status. Blood specimen (specimen) BLOOD SPECIMEN / Unknown 11/18/2014 12:09 PM CDT 11/18/2014 12:59 PM CDT us Jones Stover MD LAB - CHEMISTRY ORDERABLES Joann wallace Result [address] [phone] from Last 3 Months or Most Recently Relevant to Health Maintenance Insurance [employer] Care Teams Crossbar Frame Wirer Relationship Specialty Start Date End Date Marybeth Burkett MD [address] [place] [address] [address] [place] [address] PCP - General 11/18/14
[2024-09-03 19:28] LABS: Hematocrit 45.1 % (37.0-47.0); Hemoglobin 14.2 g/dL (12.0-15.0); Mean Corpuscular HGB Conc 31.5 g/dl (32-36); Mean Corpuscular Hemoglobin 29.5 pg (26-34); Mean Corpuscular Volume 93.6 fl (80-100); Mean Platelet Volume 8.9 fl (7.4-10.4); Platelet Count Result 448 k/mm3 (150-375); Red Blood Count 4.82 M/mm3 (4.2-5.4); Red Cell Distribution Width 14.5 % (11.5-14.5); White Blood Count 12.2 K/mm3 (4.5-10.0)
[2024-09-03 19:44] LABS: Add Urine Microscopic? YES; Appearance Urine Cloudy (Clear); Bacteria Urine 1+ /hpf; Bilirubin Urine Negative (Negative); Blood Urine Trace (Negative); Color Urine Yellow (Yellow); Glucose Urine UA Negative (Negative); Hyaline Casts Urine Present /lpf; Ketones Urine Negative (Negative); Leukocyte Esterase Ur 3+ LEU/UL (Negative); Need Manual Microscopic Reviewed; Nitrate Urine Negative (Negative); Protein Urine Negative (Negative); RBC Urine 0-2 /hpf (0-2); Squamous Epithelial Cell Urine Occasional /hpf (Few); Urobilinogen Urine 0.2 mg/dL (<2.0); WBC Urine 51-100 /hpf (0-3)
[2024-09-03 20:05] LABS: LDL Cholesterol Direct 96 mg/dL
[2024-09-03 20:33] LABS: Hemoglobin A1C 5.3 % (<5.7)
[2024-09-03 20:53] LABS: Alanine Aminotransferase 40 U/L (6-35); Albumin Level 5.1 g/dL (3.5-5.1); Alkaline Phosphatase 95 U/L (38-126); Anion Gap 14 mmol/L (4-12); Aspartate Amino Transferase 87 U/L (14-36); Bilirubin,Total 0.7 mg/dL (0.2-1.3); Blood Urea Nitrogen 6 mg/dL (7-17); Carbon Dioxide 23 mmol/L (22-30); Chloride 96 mmol/L (98-107); Cholesterol 260 mg/dL (0-200); Estimated Glomerular Filt Rate > 60; Glucose 112 mg/dL (65-110); Potassium 5.2 mmol/L (3.4-5.0); Sodium 133 mmol/L (137-145); Triglycerides 102 mg/dL (<150); Vitamin B12 > 1000.0 pg/mL (239-931)
[2024-09-03 21:36] LABS: HDL Direct 129 mg/dL
== END 2024-09-03 11:57 | disposition home or self-care (01) ==
LOC: ANHBWCLAB 11:57
PROVIDERS: PCP Nurse Practitioner Adult Health; Visit Provider Nurse Practitioner Adult Health
DX: Z13.9 Encounter for screening, unspecified (principal); R73.9 Hyperglycemia, unspecified; E03.9 Hypothyroidism, unspecified; F10.20 Alcohol dependence, uncomplicated; R39.9 Unspecified symptoms and signs involving the genitourinary system; E78.2 Mixed hyperlipidemia
CPT/HCPCS: 36415; 80053; 80061; 81001; 82607; 83036; 84443; 85027; 87086

== ENCOUNTER 2024-09-18 12:47 | Outpatient (CLI) | payer BC, SELFPAY ==
--- OUTSIDE RECORDS SUMMARY | 2024-09-18 12:52 | XMS_ITS | Clinical Summary ---
Author Organization [facility] [employer] Address [address] [place] [address] Care Team Providers Care Plywood Layup Line Core Feeder Name Role Phone Marybeth Burkett MD Primary Care Provider Source Comments [facility] [employer],non-owned Affiliates and Associated Physician Practices is amultiple site organization consisting of ambulatory clinics and hospital sitesin [place], [place], [place] and [place]. This disclosure is being madepursuant to the Care Everywhere program and may not contain all information available regarding this patient. 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 Gender Identity Not on file Sexual Orientation [...] 12:33 PM CDT Height 170.2 cm (5' 7) 01/12/2015 12:33 PM CDT Body Mass Index [...] Hepatitis C Antibody Non-react jovani Non-reac tive [facility] Comment: Hepatitis C Antibody screen indicates [...] LAB - CHEMISTRY ORDERABLES Joann wallace Result [address] [phone] from Last 3 Months or Most Recently Relevant to Health Maintenance Insurance [employer] Care Teams Plywood Layup Line Core Feeder Relationship Specialty Start Date End Date Marybeth Burkett MD [address] [place] [address] [address] [place] [address] PCP - General 11/18/14
[2024-09-18 19:58] LABS: Add Urine Microscopic? YES; Appearance Urine Cloudy (Clear); Bacteria Urine None Seen /hpf; Bilirubin Urine Negative (Negative); Blood Urine Trace (Negative); Color Urine Yellow (Yellow); Glucose Urine UA Negative (Negative); Ketones Urine Negative (Negative); Leukocyte Esterase Ur 3+ LEU/UL (Negative); Need Manual Microscopic Reviewed; Nitrate Urine Negative (Negative); Non Pathogenic Casts 0-2; Protein Urine Negative (Negative); Specific Grav Ur 1.009 (1.001-1.035); Squamous Epithelial Cell Urine Few /hpf (Few); Urobilinogen Urine 0.2 mg/dL (<2.0); WBC Urine >100 /hpf (0-3)
== END 2024-09-18 12:48 | disposition home or self-care (01) ==
LOC: ANHBWCLAB 12:48
PROVIDERS: PCP Nurse Practitioner Adult Health; Visit Provider Nurse Practitioner Adult Health
DX: R39.9 Unspecified symptoms and signs involving the genitourinary system (principal)
CPT/HCPCS: 81001; 87086

== ENCOUNTER 2024-12-04 13:42 | Outpatient (CLI) | payer BC, SELFPAY ==
--- OUTSIDE RECORDS SUMMARY | 2024-12-04 14:09 | XMS_ITS | Clinical Summary ---
Author Organization [facility] [employer] Address [address] [place] [address] Care Team Providers Care Copy Machine Operator Name Role Phone Marybeth Burkett MD Primary Care Provider [phone] Source Comments [facility] [employer],non-owned Affiliates and Associated Physician Practices is amultiple site organization consisting of ambulatory clinics and hospital sitesin [place], [place], [place] and [place]. This disclosure is being madepursuant to the Care Everywhere program and may not contain all information available regarding this patient. 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 Gender Identity Not on file Sexual Orientation [...] season) 2023 DEPRESSION SCREENING 04/17/2024 INFLUENZA VACCINE (#1) 2024 Respiratory Syncytial Virus (RSV) Vaccine Pt: [...] Hepatitis C Antibody Non-react jovani Non-reac tive [facility] Comment: Hepatitis C Antibody screen [...] LAB - CHEMISTRY ORDERABLES Joann wallace Result [address] [phone] from Last 3 Months or Most Recently Relevant to Health Maintenance Insurance [employer] Care Teams Copy Machine Operator Relationship Specialty Start Date End Date Marybeth Burkett MD [address] [place] [address] [address] [place] [address] PCP - General 11/18/14
[2024-12-04 18:39] LABS: Add Urine Microscopic? YES; Appearance Urine Clear (Clear); Glucose Urine UA Negative (Negative); Leukocyte Esterase Ur 3+ LEU/UL (Negative); Nitrate Urine Negative (Negative); Non Pathogenic Casts 0-2; Specific Grav Ur 1.004 (1.001-1.035)
== END 2024-12-04 13:43 | disposition home or self-care (01) ==
LOC: ANHBWCLAB 13:43
PROVIDERS: PCP Nurse Practitioner Adult Health; Visit Provider Nurse Practitioner Adult Health
DX: R39.9 Unspecified symptoms and signs involving the genitourinary system (principal)
CPT/HCPCS: 81001; 87086

== ENCOUNTER 2024-12-12 00:03 | Day surgery (SDC) | payer BC, SELFPAY ==
[2024-09-16 11:14] VITALS: BMI 25.1
[2024-11-27 10:18] VITALS: BMI 25.9
[2024-12-12 06:24] VITALS: BP 156/77; PULSE 112; RESP 18; TEMP 35.7; O2SAT 100
[2024-12-12] MEDS: LACTATED RINGERS 1,000 ML 150 ML IV CONT (06:31)
--- NOTE | 2024-12-12 07:14 | WPDANESEPPF ---
Anes - Initial Pre Proc Eval Procedure: Operation Date: 12/12/24 07:30 Proposed Procedures p Colonoscopy - Gray Lopez MD Date/Time: 12/12/24 07:14 Surgeon: Gray Lopez MD Pre Op Diagnosis: personal hx of colon polyps Patient Data Age: 64 Gender: F Height: 1.7 m Weight: 74.8 kg Last Vital Signs Temp 35.7 C L 12/12/24 06:24 Pulse 112 H 12/12/24 06:24 Resp 18 12/12/24 06:24 BP 156/77 H 12/12/24 06:24 Pulse Ox 100 12/12/24 06:24 O2 Del Method Room Air 12/12/24 06:24 Allergies Allergy/AdvReac Type Severity Reaction Status Date / Time Penicillins Allergy Unknown Skin Verified 12/12/24 06:21 irritation Home Medications ?Medication ?Instructions ?Recorded ?Confirmed ?Type ibuprofen 600 mg tablet 600 mg PO QID PRN pain #30 tabs 08/29/22 12/12/24 Rx budesonide 160 mcg-glycopyr 9 2 inh inhalation BID #10.7 grams 01/22/24 12/12/24 Rx mcg-formot 4.8 mcg/actuation HFA inhaler (Breztri Aerosphere) albuterol sulfate 90 mcg/actuation See Rx Instructions .Route 04/02/24 12/12/24 Rx aerosol inhaler .COMPLEX #8.5 grams cetirizine 5 mg-pseudoephedrine ER See Rx Instructions .Route 04/30/24 12/12/24 Rx 120 mg tablet,extended release,12hr .COMPLEX #60 tabs lisinopril 40 mg tablet See Rx Instructions .Route 05/21/24 12/12/24 Rx .COMPLEX #90 tabs venlafaxine 150 mg 150 mg PO DAILY #90 caps 07/15/24 12/12/24 Rx capsule,extended release 24 hr buspirone 5 mg tablet See Rx Instructions .Route 08/12/24 12/12/24 Rx .COMPLEX #180 tabs celecoxib 200 mg capsule See Rx Instructions .Route 09/19/24 12/12/24 Rx .COMPLEX #90 caps thyroid (pork) 60 mg tablet See Rx Instructions .Route 09/19/24 12/12/24 Rx ([place] Thyroid) .COMPLEX #90 tabs amlodipine 2.5 mg tablet See Rx Instructions .Route 11/18/24 12/12/24 Rx .COMPLEX #90 tabs atorvastatin 10 mg tablet See Rx Instructions .Route 11/18/24 12/12/24 Rx .COMPLEX #90 tabs Patient hx anesthesia problems: none Family hx anesthesia problems: none Results Review: All pre-operative results and documents have been reviewed as part of the pre-operative evaluation. [facility] Past Medical History Medical History History of bruising easily COPD (chronic obstructive pulmonary disease) Closed fracture of lateral portion of left tibial plateau Allergies VARSHA (generalized anxiety disorder) Hypothyroidism determined by thyroid function test HTN (hypertension) Surgical History Surgical History Hx of appendectomy H/O: hysterectomy Family History Family History Father Family history of heart disease in male family member before age 55 Family history of cardiovascular disease Acute myocardial infarction Family history of coronary artery disease Mother Family history of Parkinson's disease Family history of Alzheimer's disease Father Heart disease Mother Parkinson disease Other Family history of arthritis Social History Social History Smoking packs per day: 3 Smoking cigarettes per day: 60.0 Years smoked: 40 Smoking pack-years: 120.00 Smoking status: Former smoker Tobacco type: cigarettes Second hand tobacco smoke exposure: No Smoking end date: 04/17/09 Alcohol intake: current Drinks per week: 12 Alcohol use details: Beer Substance use: current Substance use type: marijuana Other substance usage details: Marijuana daily, edibles Living arrangements: with family Spiritual care concerns: No Anes - Eval Final PreProcedure Day of Procedure 12/12/24 07:14 Patient weight: overweight Heart: regular rate and rhythm Lungs: clear to auscultation Airway: Mallampati scale class II Neurological: alert and oriented Last oral intake: >/= 8 hours ASA classification: II Emergent: no Anesthetic plan: proceed Anesthesia type and monitoring: general GIVS and standard monitoring Results Review: All pre-operative results and documents have been reviewed as part of the pre-operative evaluation. Informed Consent: The patient's anesthetic plan and its attendant risks and benefits were discussed with the patient/family/POA. Questions were solicited and answers provided to the satisfaction of the patient/family/POA.
--- NOTE | 2024-12-12 07:29 | P.HP_ITS ---
H&P: HPI History of Present Illness Date/Time: 12/12/24 07:29 Chief Complaint: History of colon polyps Narrative: The patient has a history of colonic polyps, the last colonoscopy was 5 years ago. Review of Systems Review of Systems: All systems reviewed & are unremarkable except as noted in HPI and below PMFSH Past Medical History Medical History History of bruising easily COPD (chronic obstructive pulmonary disease) Closed fracture of lateral portion of left tibial plateau Allergies VARSHA (generalized anxiety disorder) Hypothyroidism determined by thyroid function test HTN (hypertension) Surgical History Surgical History Hx of appendectomy H/O: hysterectomy Family History Family History Father Family history of heart disease in male family member before age 55 Family history of cardiovascular disease Acute myocardial infarction Family history of coronary artery disease Mother Family history of Parkinson's disease Family history of Alzheimer's disease Father Heart disease Mother Parkinson disease Other Family history of arthritis Social History Social History Smoking packs per day: 3 Smoking cigarettes per day: 60.0 Years smoked: 40 Smoking pack-years: 120.00 Smoking status: Former smoker Tobacco type: cigarettes Second hand tobacco smoke exposure: No Smoking end date: 04/17/09 Alcohol intake: current Drinks per week: 12 Alcohol use details: Beer Substance use: current Substance use type: marijuana Other substance usage details: Marijuana daily, edibles Living arrangements: with family Spiritual care concerns: No Meds Home Medications and Allergies Home Medications ?Medication ?Instructions ?Recorded ?Confirmed ?Type ibuprofen 600 mg tablet 600 mg PO QID PRN pain #30 t abs 08/29/22 12/12/24 Rx budesonide 160 mcg-glycopyr 9 2 inh inhalation BID #10 .7 grams 01/22/24 12/12/24 Rx mcg-formot 4.8 mcg/actuation HFA inhaler (Breztri Aerosphere) albuterol sulfate 90 mcg/actuation See Rx Instructions .Route 04/02/24 12/12/24 Rx aerosol inhaler .COMPLEX #8.5 grams cetirizine 5 mg-pseudoephedrine ER See Rx Instructions .Route 04/30/24 12/12/24 Rx 120 mg tablet,extended release,12hr .COMPLEX #60 tabs lisinopril 40 mg tablet See Rx Instructions .Route 0 05/21/24 12/12/24 Rx .COMPLEX #90 tabs venlafaxine 150 mg 150 mg PO DAILY #90 caps 12/12/24 Rx capsule,extended release 24 hr buspirone 5 mg tablet See Rx Instructions .Route 0 08/12/24 12/12/24 Rx .COMPLEX #180 tabs celecoxib 200 mg capsule See Rx Instructions .Route 0 09/19/24 12/12/24 Rx .COMPLEX #90 caps thyroid (pork) 60 mg tablet See Rx Instructions .Route 09/19/24 12/12/24 Rx ([place] Thyroid) .COMPLEX #90 tabs amlodipine 2.5 mg tablet See Rx Instructions .Route 0 11/18/24 12/12/24 Rx .COMPLEX #90 tabs atorvastatin 10 mg tablet See Rx Instructions .Route 0 11/18/24 12/12/24 Rx .COMPLEX #90 tabs Allergies Allergy/AdvReac Type Severity Reaction Status Date / Time Penicillins Allergy Unknown Skin Verified 12/12/24 06:21 irritation Vital Signs Vital Signs - 24 hr 12/12/24 06:24 Temperature 96.3 F L Pulse Rate 112 H Respiratory Rate 18 Blood Pressure 156/77 H Pulse Oximetry 100 Oxygen Delivery Room Air Exam Const: General: cooperative and healthy appearing Resp: Effort & Inspection: normal respiratory effort and able to speak in complete sentences Auscultation: clear to auscultation bilaterally Cardio: Rate: regular rate Rhythm: regular rhythm GI: Inspection: normal to inspection GI Palp: No No hepatosplenomegaly present Auscultation: normal bowel sounds Rectal Exam: deferred Skin: General skin exam: normal color Psych: Appearance: grossly normal Mental Status: mental status grossly normal Assessment and Plan Assessment and plan (1) Colon cancer screening: Code(s): Z12.11 - Encounter for screening for malignant neoplasm of colon Status: Acute Assessment and Plan: The patient is deemed a good candidate for the procedure. Consent signed. Will proceed.
[2024-12-12 07:50] VITALS: BP 112/67; PULSE 89; RESP 20; O2SAT 99
[2024-12-12 08:00] VITALS: BP 143/78; PULSE 87; RESP 22; O2SAT 100
[2024-12-12 08:10] VITALS: BP 147/84; PULSE 87; RESP 20; O2SAT 100
== END 2024-12-12 08:25 | disposition home or self-care (01) ==
PROVIDERS: PCP Nurse Practitioner Adult Health; Referring Provider Nurse Practitioner Adult Health; Visit Provider Internal Medicine Gastroenterology
PROC: 0DJD8ZZ Inspection of Lower Intestinal Tract, Via Natural or Artificial Opening Endoscopic (ICD-10-PCS; CPT 45378; principal; 2024-12-12 07:30)
DX: Z12.11 Encounter for screening for malignant neoplasm of colon (principal); K57.30 Diverticulosis of large intestine without perforation or abscess without bleeding; Z86.0100 Personal history of colon polyps, unspecified
CPT/HCPCS: 45378; J2003; J2704; J7120

== ENCOUNTER 2025-03-11 12:03 | Outpatient (CLI) | payer BC, SELFPAY ==
--- OUTSIDE RECORDS SUMMARY | 2025-03-11 13:40 | XMS_ITS | Clinical Summary ---
Author Organization [facility] [employer] Address [address] [facility] [place] [address] Care Team Providers Care Lap Regulator Name Role Phone Marybeth Burkett MD Primary Care Provider Source Comments [facility] [employer],non-owned Affiliates and Associated Physician Practices is amultiple site organization consisting of ambulatory clinics and hospital sitesin [place], [place], [place] and [place]. This disclosure is being madepursuant to the Care Everywhere program and may not contain all information available regarding this patient. Last updated 18.[facility] [employer] Allergies Active Allergy Reactions Criticality Noted Date Comments Penicillins Skin Reactions Medium 11/18/2014 Active Problems Problem Noted Date Diagnosed Date Fatty (change of) liver, not elsewhere classifie d 11/18/2014 Overview (07/17/2017): Seen on 06/2013 Social History Tobacco Use Types Packs/Day Years Used Date Smoking Tobacco: Former Cigarettes 2.5 Q uit: 04/17/2009 Smokeless Tobacco: Never Alcohol Use Standard Drinks/Week Comments No 0 (1 standard drink = 0.6 oz pur e alcohol) Comments Unknown Sex and Gender Information Value Date Recorded Sex Assigned at Not on file 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 Gender Identity Not on file Sexual Orientation [...] 1976 DTAP/TDAP/TD VACCINES (1 - Tdap) 1980 PAP SMEAR 1982 Cervical Cancer Screening 1991 PAP with HPV 1991 PNEUMOCOCCAL VACCINE 50+ (1 of 1 - PCV) 2011 ZOSTER VACCINE (1 of 2) 2011 DEPRESSION SCREENING 04/17/2024 COVID-19 VACCINE (1 - 2024-2 6 season) 2024 INFLUENZA VACCINE (#1) 2024 Respiratory Syncytial Virus [...] 12:09 PM CDT) Hepatitis C Antibody Non-react jovanimalissa Valadez-reac tive [facility] Comment: Hepatitis C Antibody screen indicates [...] LAB - CHEMISTRY ORDERABLES Joann wallace Result [address] [phone] from Last 3 Months or Most Recently Relevant to Health Maintenance Insurance [employer] Care Teams Lap Regulator Relationship Specialty Start Date End Date Marybeth Burkett MD [address] [facility] [address] [place] [address] PCP - General 11/18/14
[2025-03-11 19:48] LABS: Hemoglobin A1C 5.4 % (<5.7)
[2025-03-11 20:06] LABS: Alanine Aminotransferase 39 U/L (6-35); Albumin Level 5.0 g/dL (3.5-5.1); Alkaline Phosphatase 121 U/L (38-126); Anion Gap 13 mmol/L (4-12); Aspartate Amino Transferase 84 U/L (14-36); Bilirubin,Total 0.6 mg/dL (0.2-1.3); Blood Urea Nitrogen 5 mg/dL (7-17); Calcium 10.0 mg/dL (8.4-10.2); Carbon Dioxide 23 mmol/L (22-30); Chloride 94 mmol/L (98-107); Cholesterol 234 mg/dL (0-200); Estimated Glomerular Filt Rate > 60; Glucose 93 mg/dL (65-110); HDL Direct 96 mg/dL; Potassium 4.8 mmol/L (3.4-5.0); Sodium 130 mmol/L (137-145); Total Protein 8.4 g/dL (6.3-8.2); Triglycerides 106 mg/dL (<150)
[2025-03-11 20:15] LABS: Add Urine Microscopic? YES; Appearance Urine Turbid (Clear); Glucose Urine UA Negative (Negative); Leukocyte Esterase Ur 3+ LEU/UL (Negative); Need Manual Microscopic Reviewed; Nitrate Urine Positive (Negative); Specific Grav Ur 1.010 (1.001-1.035)
[2025-03-11 20:37] LABS: Thyroid Stimulating Hormone 3.730 uIU/mL (0.465-4.680)
[2025-03-11 20:45] LABS: Hematocrit 40.0 % (37.0-47.0); Hemoglobin 13.3 g/dL (12.0-15.0); Immature Granulocyte Percent A 1.2 % (0-0.5); Lymphocytes Absolute Auto 2.15 K/mm3 (0.9-3.2); Mean Corpuscular HGB Conc 33.3 g/dl (32-36); Mean Corpuscular Hemoglobin 29.9 pg (26-34); Mean Corpuscular Volume 89.9 fl (80-100); Nucleated Red Blood Cells Absolute Auto 0.000 K/mm3 (0.0-0.012); Nucleated Red Blood Cells Perc 0.0 % (0.0-0.2); Platelet Count Result 447 k/mm3 (150-375); Red Blood Count 4.45 M/mm3 (4.2-5.4); White Blood Count 12.8 K/mm3 (4.5-10.0)
== END 2025-03-11 12:04 | disposition home or self-care (01) ==
LOC: ANHBWCLAB 12:04
PROVIDERS: PCP Nurse Practitioner Adult Health; Visit Provider Nurse Practitioner Adult Health
DX: R39.9 Unspecified symptoms and signs involving the genitourinary system (principal); I10 Essential (primary) hypertension; E03.9 Hypothyroidism, unspecified; R73.9 Hyperglycemia, unspecified
CPT/HCPCS: 36415; 80053; 80061; 81001; 83036; 84443; 85025; 87077; 87086; 87186

== ENCOUNTER 2025-03-26 10:42 | Outpatient (CLI) | payer BC, SELFPAY ==
[2025-03-26 19:22] LABS: Add Urine Microscopic? YES; Appearance Urine Cloudy (Clear); Glucose Urine UA Negative (Negative); Leukocyte Esterase Ur 3+ LEU/UL (Negative); Need Manual Microscopic Reviewed; Nitrate Urine Negative (Negative); Specific Grav Ur 1.009 (1.001-1.035)
== END 2025-03-26 10:43 | disposition home or self-care (01) ==
PROVIDERS: PCP Nurse Practitioner Adult Health; Visit Provider Nurse Practitioner Adult Health
DX: N39.0 Urinary tract infection, site not specified (principal); A49.9 Bacterial infection, unspecified
CPT/HCPCS: 81001; 87086